=== PATIENT | male | born 1935 | race Caucasian/White ===

== ENCOUNTER → 2018-04-28 | Outpatient (CLI) | payer MEDICARE, OTHER ==
[~2018-04-28] MED LIST: ALLO-119 PO; AMLO-127 PO; CYAN50TA3 PO; FOLI0.4T56 PO; GADOBENATE 529MG/1ML 15ML VIAL IVP ONE; HYDR-317 PO; LOR5 PO; NAPR-1043 PO; NONE CURRENTLY
--- NOTE | 2018-04-28 14:05 | RADIOLOGY IMAGING REPORT ---
FACILITY: [facility] PATIENT NAME: Royal Mcguire : 1935 MR: [id number] V: [id number] EXAM DATE: ORDERING PHYSICIAN: JHONNY TRAN TECHNOLOGIST: Location: [facility] - [place] Patient: Royal Mcguire : 1935 Visit/Account:[id number] Date of Sevice: 04/28/2018 MR BRAIN/BRAIN STEM W/ & W/O CON Comparisons: November 19, 2012 Additional pertinent history: Bilateral hearing loss. TECHNIQUE: Multiplanar, multisequence brain MRI was performed with and without gadolinium contrast. Dedicated thin section imaging was performed through the internal auditory canals with axial and tesfaye nal imaging. CONTRAST: 15 ml of MultiHance. FINDINGS: Sagittal midline structures and craniocervical junction: Negative. Midline shift: None. Ventricles: Negative. Brain parenchyma: Diffusion weighted imaging: Negative. Gradient sequence: Not performed T2 weighted FLAIR images: Region of abnormal increased T2 signal with mild encephalomalacia involvi ng the right frontal lobe. Dedicated imaging through the internal auditory canals: Seventh and eighth cranial nerves: Negative Semicircular canals/cochlea: Negative Fifth cranial nerves/Meckel's caves: Negative Cerebellopontine angles: Negative Pathologic enhancement: Negative Extra-axial spaces: Negative. Dural venous sinuses and major arterial flow voids: Negative. Intracranial enhancement: Negative.. Mastoid air cells and paranasal sinuses: Negative. Surrounding soft tissues and orbits: Negative. Impression: 1. 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 2. Normal imaging of the internal auditory canals. 3. No evidence of acute intracranial pathology. Report Dictated By: Anam Parrish MD at 04/28/2018 1:49 PM Report E-Signed By: Anam Parrish MD at 04/28/2018 2:00 PM [id number]
== END ==
LOC: MRI 01:12
PROVIDERS: ATTEND Otolaryngology
DX: G93.89 Other specified disorders of brain (principal)
CPT/HCPCS: 70553; A9577

== ENCOUNTER → 2018-08-27 | Outpatient (CLI) | payer MEDICARE, OTHER ==
[~2018-08-27] MED LIST changes: -GADOBENATE 529MG/1ML 15ML VIAL IVP ONE; +IOPAMIDOL 76% 100 ML INFUS BTL 100 ML ONE
--- NOTE | 2018-08-27 15:48 | RADIOLOGY IMAGING REPORT ---
FAC[place] [facility] [place]IENT NAME: Danny Mcguire : 1935 MR: [id number] V: [id number] EXAM DATE: ORDERING PHYSICIAN: DANNY ALEXIS TECHNOLOGIST: Location: [facility] Patient: Danny Mcguire : 1935 Visit/Account:[id number] Date of Sevice: 08/27/2018 CT BRAIN WITH AND WITHOUT COMPARISONS: None. ADDITIONAL PERTINENT HISTORY: Acute confusion and disorientation. Previous surgery for removal of a hematoma. TECHNIQUE: Multiple axial images were obtained from the skull base to the vertex before and after th e IV administration of contrast. One of the following dose optimization techniques was utilized in t he performance of this exam: Automated exposure control; adjustment of the mA and/or kV according to the patient's size; or use of an iterative reconstruction technique. Specific details can be refere nced in the facility's radiology CT exam operational policy. CONTRAST: 75 ml of Isovue-370 FINDINGS: Midline shift: Negative Ventricles: Negative Brain parenchyma: Mild patchy hypoattenuation within the periventricular and subcortical white matte r, nonspecific but likely representing small vessel ischemic change on a chronic basis. 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 No intraparenchymal hemorrhage or mass effect. Extra-axial spaces: Negative Pathologic enhancement: Negative Intracranial vasculature: Negative Osseous structures: Patient status post previous right frontoparietal craniotomy. Otherwise negative Paranasal sinuses and mastoid air cells: Negative Surrounding soft tissues and orbits: Negative IMPRESSION: 1. Postoperative changes with previous right frontoparietal craniotomy. 2. 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 3. No acute intracranial pathology. Report Dictated By: Anam Parrish MD at 08/27/2018 3:39 PM Report E-Signed By: Anam Parrish MD at 08/27/2018 3:44 PM WSN:[id number]
== END ==
LOC: CT 14:34
PROVIDERS: ATTEND Family Medicine
DX: R41.0 Disorientation, unspecified (principal)
CPT/HCPCS: 70470; Q9967